=== PATIENT | female | born 2000 | race African-American/Black ===

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

== ENCOUNTER 2023-07-20 19:54 | Emergency (ER) | payer MEDICAID, OTHER ==
[~2023-07-20] VITALS: Ht 157.5 cm; Wt 78.0 kg
[~2023-07-20 19:54] MED LIST: HYDR-3972 PO; ONDA4TAB11 PO
[2023-07-20 20:33] VITALS: TEMP 100.4
[2023-07-20] MEDS: IV NS 0.9% 1,000 ML BAG IV ONE (21:00)
[2023-07-20] MEDS: ACETAMINOPHEN ES 500 MG TABLET PO ONE (21:00)
[2023-07-20] MEDS ORDERED: ACETAMINOPHEN ES 500 MG TABLET ONE (21:05)
[2023-07-20 21:06] LABS: BASOPHILS % (AUTO) 0.5 % (0.0-2.0); EOSINOPHILS % (AUTO) 0.3 % (0.0-6.0); HEMATOCRIT 45 % (33-45); HEMOGLOBIN 15.2 g/dL (11.5-14.8); LYMPHOCYTES # (AUTO) 0.6 K/uL (0.8-4.8); LYMPHOCYTES % (AUTO) 6.7 % (20.0-44.0); MEAN CORPUSCULAR HEMOGLOBIN 29 PG (26.0-33.0); MEAN CORPUSCULAR HGB CONC 34 g/dl (31.0-36.0); MEAN CORPUSCULAR VOLUME 86 fL (82-100); MONOCYTES # (AUTO) 0.8 K/uL (0.1-1.30); MONOCYTES % (AUTO) 8.1 % (2.0-12.0); NEUTROPHILS # (AUTO) 8.1 K/uL (1.8-8.9); NEUTROPHILS % (AUTO) 84.4 % (43.0-81.0); PLATELET COUNT (AUTO) 283 K/uL (150-450); RED BLOOD CELL COUNT(AUTO) 5.23 MIL/uL (4.0-5.2); RED CELL DISTRIBUTION WIDTH 14.9 % (11.5-15.0); WHITE BLOOD COUNT (AUTO) 9.6 K/uL (4.3-11.0)
[2023-07-20 21:08] LABS: APPEARANCE,URINE Slightly Cloudy (CLEAR); BILIRUBIN,URINE SMALL (NEGATIVE); BLOOD, URINE Negative Ery/uL (NEGATIVE); COLOR,URINE YELLOW (YELLOW); KETONES,URINE Trace mg/dL (NEGATIVE); LEUKOCYTE ESTERASE ,URINE Negative (NEGATIVE); NITRITE, URINE Negative (NEGATIVE); PROTEIN,URINE Trace mg/dl (NEGATIVE); UGLUCOSE Negative (NEGATIVE); UROBILINOGEN,URINE 0.2 EU/dL (0.2)
[2023-07-20 21:09] LABS: PREGNANCY TEST URINE QUAL NEGATIVE (NEGATIVE)
[2023-07-20 21:15] LABS: CALCIUM, SERUM 8.7 mg/dL (8.5-10.1); CREATININE 0.8 mg/dL (0.6-1.3); POTASSIUM 3.2 mmol/L (3.5-5.1)
[2023-07-20 21:21] LABS: ADD URINE CULTURE NO; BACTERIA,URINE 1+ /HPF (None Seen); MUCUS,URINE Few /LPF (None Seen); RBC,URINE NONE SEEN /HPF (0-2); WBC,URINE NONE SEEN /HPF (0-3)
[2023-07-20 21:21] LABS: ALBUMIN 3.9 g/dL (3.4-5.0); BILIRUBIN,DIRECT 0.1 mg/dL (0.0-0.2); BILIRUBIN,TOTAL 0.4 mg/dL (0.2-1.0); TOTAL PROTEIN, SERUM 8.1 g/dL (6.4-8.2)
[2023-07-20 22:33] VITALS: BP 120/70; O2SAT 99
== END 2023-07-20 22:32 | disposition home or self-care (01) ==
LOC: ER 19:58
DX: R10.84 Generalized abdominal pain (principal); R11.10 Vomiting, unspecified; R19.7 Diarrhea, unspecified; F41.9 Anxiety disorder, unspecified; F32.A Depression, unspecified; Z90.89 Acquired absence of other organs
CPT/HCPCS: 99283; 96360; 85025; 80048; 83690; 80076; 84703; 81001; 36415; J7030

== ENCOUNTER 2023-08-14 20:48 | Emergency (ER) | payer OTHER ==
[~2023-08-14] VITALS: Ht 157.5 cm; Wt 79.4 kg
[2023-08-14 22:07] VITALS: BP 118/68; TEMP 98.3
[2023-08-14] MEDS ORDERED: AMOXICILLIN TRIHYDRATE 250 MG CAPSULE ONE (22:32)
[2023-08-14] MEDS ORDERED: ACET325T53 PO (22:34)
[2023-08-14] MEDS ORDERED: AMOX500C2 PO (22:34)
[2023-08-14] MEDS ORDERED: IBUP-1957 PO (22:34)
[2023-08-14] MEDS: IBUPROFEN 600 MG TABLET PO ONE (22:36)
[2023-08-14] MEDS: AMOXICILLIN TRIHYDRATE 500 MG CAPSULE PO ONE (22:36)
[2023-08-14 22:50] VITALS: O2SAT 98
== END 2023-08-14 22:50 | disposition home or self-care (01) ==
LOC: ER 20:51
DX: R07.0 Pain in throat (principal); K13.79 Other lesions of oral mucosa; T41.0X5A Adverse effect of inhaled anesthetics, initial encounter; F32.A Depression, unspecified; F41.9 Anxiety disorder, unspecified; Y92.89 Other specified places as the place of occurrence of the external cause